=== PATIENT | male | born 1955 | race Caucasian/White ===

== ENCOUNTER 2017-02-16 20:41 | Emergency (ER) | payer BC ==
[~2017-02-16 20:41] MED LIST: EPINEPHrine 10 ML SYRINGE (0.1 MG/ML) ONE; SODIUM BICARB 8.4% 50 ML SYR (1 MEQ/ML) ONE
--- NOTE | 2017-02-16 21:39 | ED ---
General Adult HPI - General Chief complaint: Cardiac Arrest/CPR Stated complaint: cardiac arrest Time Seen by Provider: 02/16/17 21:01 Source: EMS, RN notes reviewed, old records reviewed Mode of arrival: EMS Limitations: no limitations - History of Present Illness Initial comments: This is a 61-year-old male to the ER for evaluation. This patient presents for evaluation regarding cardiac arrest. Patient is but on EMS, patient poor historian secondary to severe clinical condition, patient is intubated currently undergoing CPR. EMS as well as patient's family, patient may taken a Viagra this afternoon and then began to has no abdominal pain and severe chest pain. Patient then collapsed. EMS was called EMS states upon arrival to house patient was pulseless indicate ventricular fibrillation and he was defibrillated twice with no return of circulation found to go in that appointment into asystole and patient is brought into emergency room still found to be in asystole - Related Data Home Medications Medication Instructions Recorded Confirmed Unable To Assess [Unable to Assess] 02/16/17 02/16/17 Allergies Allergy/AdvReac Type Severity Reaction Status Date / Time Unable to Assess Allergy Verified 02/16/17 21:17 Review of Systems ROS Statement: Those systems with pertinent positive or pertinent negative responses have been documented in the HPI. ROS Other: All systems not noted in ROS Statement are negative. Past Medical History Past Medical History: Unable to Obtain History of Any Multi-Drug Resistant Organisms: Unobtainable Past Surgical History: Unable to Obtain Past Psychological History: Unable to Obtain Smoking Status: Unknown if ever smoked Past Alcohol Use History: Unable to Obtain Past Drug Use History: Unable to Obtain General Exam Limitations: altered mental status General appearance: in distress Head exam: Present: atraumatic, normocephalic, normal inspection Eye exam: Present: other (Pupils fixed and dilated). Absent: scleral icterus, conjunctival injection, periorbital swelling ENT exam: Present: normal exam, mucous membranes moist Neck exam: Present: normal inspection. Absent: tenderness, meningismus, lymphadenopathy Respiratory exam: Present: other (Apneic). Absent: respiratory distress, wheezes, rales, rhonchi, stridor Cardiovascular Exam: Present: other (No heart sounds). Absent: systolic murmur , diastolic murmur, rubs, gallop, clicks GI/Abdominal exam: Present: soft, normal bowel sounds. Absent: distended, tenderness, guarding, rebound, rigid Extremities exam: Present: normal inspection, full ROM, normal capillary refill. Absent: tenderness, pedal edema, joint swelling, calf tenderness Back exam: Present: normal inspection Skin exam: Present: cyanosis. Absent: rash Course - Reevaluation(s) Reevaluation #1: 02/16/17 21:31 spoke with family greater than 15 minutes, aware of patients expiraton, questions answered Reevaluation #2: 02/16/17 21:35 After 20 minutes of high-quality CPR which followed an hour of ACS protocol by EMS patient was pronounced at 2100, patient was found at that point to be in asystole with no heart sounds no breath sounds equal 6 and dilated Medical Decision Making - Medical Decision Making 61 male to the ED for evaluation. Patient is brought into emergency room in cardiopulmonary arrest receiving ACOS protocol by EMS. Patient is unable to achieve return of spontaneous circulation. Patient is pronounced Disposition Clinical Impression: Cardiac arrest, Sudden cardiac , Cardiopulmonary arrest Disposition: Referrals: None,Stated [Primary Care Provider] - 1-2 days Preliminary Cause of : CPA
== END 2017-02-16 22:47 | disposition expired ==
LOC: EC 20:41
DX: I46.9 Cardiac arrest, cause unspecified (principal)
CPT/HCPCS: 92950 ×2; 99285 ×2; J0171